=== PATIENT | male | born 1980 | race Caucasian/White ===

== ENCOUNTER 2021-10-11 23:14 | Emergency (ER) | payer OTHER ==
--- NOTE | 2021-10-11 23:46 | ED ---
Chest Pain HPI - General Chief Complaint: Chest Pain Stated Complaint: Chest Pain Time Seen by Provider: 10/11/21 23:45 Source: patient, RN notes reviewed, old records reviewed Mode of arrival: wheelchair Limitations: no limitations - History of Present Illness Initial Comments: This is a 41-year-old male to the ER for evaluation, patient presents today for evaluation regards to chest pain left-sided chest pain anterior chest pain chest pain to his back and patient has no medical history takes no medications no high blood pressure no high cholesterol no family history of heart disease. No prior history of chest pain. Patient states pain began after dinner tonight and is post persistent throughout the night he said he tried to the bed, normal time and again felt worsening pain. He never appeared to diaphoretic never felt significantly swelling and without significant shortness of breath. Pain is persistent currently MD Complaint: chest pain -: hour(s) Onset: during rest, after eating Pain Location: substernal, left chest Pain Radiation: LUE, back Severity: moderate Severity scale (1-10): 7 Quality: sharp Consistency: constant Improves With: nothing Worsens With: nothing Anginal Symptoms: dyspnea Other Symptoms: cough Treatments Prior to Arrival: none - Related Data Allergies Allergy/AdvReac Type Severity Reaction Status Date / Time No Known Allergies Allergy Verified 10/11/21 23:23 Review of Systems ROS Statement: Those systems with pertinent positive or pertinent negative responses have been documented in the HPI. ROS Other: All systems not noted in ROS Statement are negative. EKG Findings - EKG Comments: EKG Findings:: EKG is normal sinus rhythm 68 PA 158 QRS 100 QTc 410 Past Medical History Past Medical History: No Reported History History of Any Multi-Drug Resistant Organisms: None Reported Past Surgical History: Orthopedic Surgery Smoking Status: Never smoker Past Alcohol Use History: Occasional Past Drug Use History: Marijuana General Exam Limitations: no limitations General appearance: alert, in no apparent distress Head exam: Present: atraumatic, normocephalic, normal inspection Eye exam: Present: normal appearance, PERRL, EOMI. Absent: scleral icterus, conjunctival injection, periorbital swelling ENT exam: Present: normal exam, mucous membranes moist Neck exam: Present: normal inspection. Absent: tenderness, meningismus, lymphadenopathy Respiratory exam: Present: normal lung sounds bilaterally. Absent: respiratory distress, wheezes, rales, rhonchi, stridor Cardiovascular Exam: Present: regular rate, normal rhythm, normal heart sounds. Absent: systolic murmur, diastolic murmur, rubs, gallop, clicks GI/Abdominal exam: Present: soft, normal bowel sounds. Absent: distended, tenderness, guarding, rebound, rigid Extremities exam: Present: normal inspection, full ROM, normal capillary refill. Absent: tenderness, pedal edema, joint swelling, calf tenderness Back exam: Present: normal inspection Neurological exam: Present: alert, oriented X3, CN II-XII intact Psychiatric exam: Present: normal affect, normal mood Skin exam: Present: warm, dry, intact, normal color. Absent: rash Course Vital Signs 10/11/21 10/11/21 10/12/21 23:20 23:49 01:20 Temperature 98.2 F Pulse Rate 70 65 64 Pulse Rate [ 65 Bottom Painter ] Respiratory 19 18 18 Rate Blood Pressure 143/92 140/79 130/70 O2 Sat by Pulse 100 98 96 Oximetry 10/12/21 02:28 Temperature Pulse Rate 58 L Pulse Rate [ Bottom Painter ] Respiratory 18 Rate Blood Pressure 126/77 O2 Sat by Pulse 95 Oximetry - Reevaluation(s) Reevaluation #1: 10/12/21 01:35 Medical record is reviewed Reevaluation #2: 10/12/21 03:14 Patient informed of results and questions are answered Reevaluation #3: 10/12/21 03:14 Patient currently feels significantly improved to prior Chest Pain MDM - MDM 41 male to the emergency department for evaluation of an episode of chest pain. Patient had normalizing troponin here in the emergency department. Normal computed tomography scan normal EKG 2. Patient can be discharged home Disposition Clinical Impression: Atypical chest pain, Chest pain Disposition: HOME SELF-CARE Condition: Good Instructions (If sedation given, give patient instructions): Chest Pain (ED) Is patient prescribed a controlled substance at d/c from ED?: No Referrals: None,Stated [Primary Care Provider] - 1-2 days
[2021-10-11 23:54] VITALS: RESP 18
[2021-10-12 00:15] LABS: Basophils # (A) 0.1 k/uL (0-0.2); Basophils % (A) 1 %; Eosinophils # (A) 0.4 k/uL (0-0.7); Eosinophils % (A) 4 %; HCT 41.5 % (39.0-53.0); HGB 15.2 gm/dL (13.0-17.5); Lymphocytes # (A) 3.6 k/uL (1.0-4.8); Lymphocytes % (A) 37 %; MCH 32.1 pg (25.0-35.0); MCHC 36.6 g/dL (31.0-37.0); MCV 87.7 fL (80.0-100.0); Monocytes # (A) 0.5 k/uL (0-1.0); Monocytes % (A) 5 %; Neutrophils % (A) 52 %; Platelet Count 217 k/uL (150-450); RBC 4.73 m/uL (4.30-5.90); RDW 12.1 % (11.5-15.5); WBC 9.6 k/uL (3.8-10.6)
[2021-10-12 00:34] LABS: ALT 25 U/L (4-49); AST 27 U/L (17-59); African American GFR (CKD) >90 (>60 ml/min/1.73 sqM); Albumin 4.2 g/dL (3.5-5.0); Alkaline Phosphatase 40 U/L (38-126); Anion Gap 9 mmol/L; Blood Urea Nitrogen 24 mg/dL (9-20); Calcium 9.2 mg/dL (8.4-10.2); Carbon Dioxide 22 mmol/L (22-30); Chloride 107 mmol/L (98-107); Glucose 122 mg/dL (74-99); Lipase 44 U/L (23-300); Magnesium 1.9 mg/dL (1.6-2.3); Non-African American GFR(CKD) >90 (>60 ml/min/1.73 sqM); Potassium 4.1 mmol/L (3.5-5.1); Sodium 138 mmol/L (137-145); Total Bilirubin 0.3 mg/dL (0.2-1.3); Total Protein 7.3 g/dL (6.3-8.2)
--- NOTE | 2021-10-12 00:35 | XR ---
EXAMINATION TYPE: XR chest 2V DATE OF EXAM: 10/12/2021 COMPARISON: NONE HISTORY: Chest pain TECHNIQUE: 2 views FINDINGS: Heart and mediastinum are normal. Lungs are clear. Diaphragm is normal. Bony thorax is norm al. IMPRESSION: Normal chest.
[2021-10-12] MEDS ORDERED: KETOROLAC 30 MG/ML 1 ML VIAL IVP STA (01:16)
[2021-10-12] MEDS ORDERED: SODIUM CHLORIDE 0.9% 1,000 ML IV STA (01:16)
[2021-10-12 01:22] LABS: Prothrombin Time 10.7 sec (9.0-12.0)
--- NOTE | 2021-10-12 02:37 | CT ---
EXAMINATION TYPE: CT angio chest DATE OF EXAM: 10/12/2021 COMPARISON: None HISTORY: Chest Pain, R/O PE CT DLP: 603.30 mGycm Automated exposure control for dose reduction was used. CONTRAST: Performed with IV Contrast, patient injected with 100 mL of Isovue 370. Images obtained from the diaphragm to the thoracic inlet with IV contrast. There are 3-D post process ed images. The lungs are clear of consolidation. There is no pleural effusion. There is no evidence of a pulmona ry mass. There is no pericardial effusion. Heart appears normal. There are no hilar masses. There is no mediastinal adenopathy. Thoracic aorta is intact. There is no aneurysm or dissection. There is normal contrast opacification of the pulmonary arteries. There are no filling defects. Thoracic spine is intact. There is no compression fracture. There is slight dextroscoliosis. Sternum is intact. The upper abdominal soft tissues appear intact. IMPRESSION: Negative exam. No evidence of pulmonary embolism.
--- NOTE | 2021-10-12 02:41 | CT ---
EXAMINATION TYPE: CT abdomen pelvis w con DATE OF EXAM: 10/12/2021 COMPARISON: None HISTORY: Chest pain CT DLP: 1567.10 mGycm Automated exposure control for dose reduction was used. CONTRAST: Performed with IV Contrast, patient injected with 100 mL of Isovue 370. Images obtained from the diaphragm to the floor the pelvis with IV contrast. Lung bases are clear. There is no pleural effusion. Heart size is normal. There is no pericardial eff usion. Liver spleen stomach pancreas gallbladder appear normal. The bile ducts are not dilated. There is no adrenal mass. Kidneys show satisfactory contrast opacification. There is no hydronephrosi s. Ureters are not dilated. Delayed images show normal renal excretion. There is no retroperitoneal a denopathy. Appendix is posterior and appears normal. Bladder distends smoothly. There is no inguinal hernia. There is no free fluid in the pelvis. There i s no evidence of a pelvic mass. There is no mesenteric edema. There is no ascites or free air. There is no sign of a bowel obstructio n. The lumbar vertebra have normal alignment. Posterior elements are intact. There is no compression fra cture. Bony pelvis is intact. The hip joints appear normal. IMPRESSION: Negative CT scan of the abdomen pelvis. Normal appendix.
[2021-10-12 03:26] VITALS: BP 128/70; PULSE 60; TEMP 97.9
== END 2021-10-12 03:26 | disposition home or self-care (01) ==
LOC: EC 23:14
DX: R07.89 Other chest pain (principal); R07.2 Precordial pain; R05.9 Cough, unspecified; R06.00 Dyspnea, unspecified
CPT/HCPCS: 36415 ×2; 93005; 85379; 83880; 80053; 83690; 83735; 84484 ×2; 85025; 85610; 85730; 71046; 71275; 74177; 99285; 96374; 96361; J1885; Q9967